=== PATIENT | male | born 1945 | race Two or more races ===

== ENCOUNTER 2016-06-19 08:30 | Emergency (ER) | payer OTHER, MEDICARE ==
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
[2016-06-19] MEDS ORDERED: INDOMETHACIN 50 MG CAPSULE PO ONE (09:02)
[2016-06-19] MEDS ORDERED: KETOROLAC TROMETHAMINE 60 MG/2 ML SDV IM ONE (09:04)
[2016-06-19 09:50] VITALS: BP 116/79
== END 2016-06-19 09:45 | disposition home or self-care (01) ==
LOC: ER 08:30
DX: M10.9 Gout, unspecified (principal)
CPT/HCPCS: 99283; 96372; J1885

== ENCOUNTER → 2016-06-26 | Outpatient (CLI) | payer MEDICARE, OTHER ==
[2016-06-26 08:16] LABS: ABSOLUTE BASOPHILS # (AUTO) 0.1 10^3/uL (0.0-0.2); ABSOLUTE EOSINOPHILS # (AUTO) 0.2 10^3/uL (0.0-0.6); ABSOLUTE LYMPHOCYTES (AUTO) 1.5 10^3/uL (0.5-4.7); ABSOLUTE MONOCYTES (AUTO) 0.9 10^3/uL (0.1-1.4); ABSOLUTE NEUT (AUTO) 2.9 10^3/uL (1.7-8.2); EOSINOPHILS % (AUTO) 3.5 % (0-6); HEMATOCRIT 44.9 % (37.9-51.0); HEMOGLOBIN 14.7 g/dL (13.5-17.0); HGB HCT DIFFERENCE -0.8; LYMPHOCYTES % (AUTO) 27.6 % (13-45); MEAN CORPUSCULAR HEMOGLOBIN 29.8 pg (27.0-33.4); MEAN CORPUSCULAR HGB CONC 32.8 g/dL (32.0-36.0); MEAN CORPUSCULAR VOLUME 91 fl (80-97); MONOCYTES % (AUTO) 15.4 % (3-13); RED BLOOD COUNT 4.93 10^6/uL (4.35-5.55); RED CELL DISTRIBUTION WIDTH 13.4 % (11.5-14.0); SEGMENTED NEUTROPHILS % (AUTO) 52.5 % (42-78); WHITE BLOOD COUNT 5.6 10^3/uL (4.0-10.5)
[2016-06-26 08:48] LABS: ALANINE AMINOTRANSFERASE 38 U/L (21-72); ALBUMIN 3.5 g/dL (3.5-5.0); ALKALINE PHOSPHATASE 150 U/L (38-126); ANION GAP 9 (5-19); ASPARTATE AMINO TRANSFERASE 32 U/L (17-59); BILIRUBIN,TOTAL 1.1 mg/dL (0.2-1.3); BLOOD UREA NITROGEN 18 mg/dL (7-20); CARBON DIOXIDE 30 mmol/L (22-30); CHLORIDE 102 mmol/L (98-107); CREATININE RESULT 0.98 mg/dL (0.52-1.25); GLUCOSE 97 mg/dL (75-110); POTASSIUM 4.8 mmol/L (3.6-5.0); SODIUM 141.1 mmol/L (137-145)
== END ==
LOC: OD 07:33
PROVIDERS: ATTEND Specialist
DX: B18.2 Chronic viral hepatitis C (principal); D50.9 Iron deficiency anemia, unspecified; R10.9 Unspecified abdominal pain
CPT/HCPCS: 36415; 80053; 80074; 82105; 85025

== ENCOUNTER 2016-06-27 05:33 | Observation (INO) | payer OTHER, MEDICARE ==
[2016-06-27 06:20] LABS: ABSOLUTE BASOPHILS # (AUTO) 0.1 10^3/uL (0.0-0.2); ABSOLUTE EOSINOPHILS # (AUTO) 0.2 10^3/uL (0.0-0.6); ABSOLUTE LYMPHOCYTES (AUTO) 1.3 10^3/uL (0.5-4.7); ABSOLUTE MONOCYTES (AUTO) 0.9 10^3/uL (0.1-1.4); ABSOLUTE NEUT (AUTO) 2.9 10^3/uL (1.7-8.2); EOSINOPHILS % (AUTO) 3.6 % (0-6); HEMATOCRIT 43.8 % (37.9-51.0); HEMOGLOBIN 14.5 g/dL (13.5-17.0); HGB HCT DIFFERENCE -0.3; LYMPHOCYTES % (AUTO) 23.7 % (13-45); MEAN CORPUSCULAR HEMOGLOBIN 30.1 pg (27.0-33.4); MEAN CORPUSCULAR HGB CONC 33.1 g/dL (32.0-36.0); MEAN CORPUSCULAR VOLUME 91 fl (80-97); MONOCYTES % (AUTO) 16.8 % (3-13); RED BLOOD COUNT 4.82 10^6/uL (4.35-5.55); RED CELL DISTRIBUTION WIDTH 13.7 % (11.5-14.0); SEGMENTED NEUTROPHILS % (AUTO) 54.9 % (42-78); WHITE BLOOD COUNT 5.3 10^3/uL (4.0-10.5)
[2016-06-27 06:39] LABS: ALANINE AMINOTRANSFERASE 30 U/L (21-72); ALBUMIN 3.6 g/dL (3.5-5.0); ALKALINE PHOSPHATASE 137 U/L (38-126); ANION GAP 9 (5-19); ASPARTATE AMINO TRANSFERASE 28 U/L (17-59); BILIRUBIN,TOTAL 1.3 mg/dL (0.2-1.3); BLOOD UREA NITROGEN 17 mg/dL (7-20); CALCIUM 8.6 mg/dL (8.4-10.2); CARBON DIOXIDE 27 mmol/L (22-30); CHLORIDE 105 mmol/L (98-107); CREATINE KINASE 104 U/L (55-170); CREATININE RESULT 0.87 mg/dL (0.52-1.25); GLUCOSE 137 mg/dL (75-110); POTASSIUM 4.3 mmol/L (3.6-5.0); SODIUM 140.9 mmol/L (137-145); TOTAL PROTEIN 6.5 g/dL (6.3-8.2)
[2016-06-27 06:47] LABS: APPEARANCE,URINE CLEAR; BILIRUBIN,URINE NEGATIVE (NEGATIVE); GLUCOSE, URINE NEGATIVE (NEGATIVE); KETONES,URINE NEGATIVE (NEGATIVE); LEUKOCYTE ESTERASE,URINE NEGATIVE (NEGATIVE); NITRITE,URINE NEGATIVE (NEGATIVE); PROTEIN,URINE NEGATIVE (NEGATIVE); URINE SPECIFIC GRAVITY 1.011; UROBILINOGEN,URINE NEGATIVE mg/dL (<2.0)
[2016-06-27 06:49] LABS: TROPONIN I < 0.012 ng/mL
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
[2016-06-27] MEDS ORDERED: FAMOTIDINE 20 MG TABLET PO SCH (10:00)
[2016-06-27] MEDS ORDERED: (PENDING PHARMACY ID) (Ranitidine Hcl [Zantac 150 Mg Tablet] 150 MG) PO SCH (10:00)
[2016-06-27] MEDS ORDERED: ASPIRIN 81 MG TABLET, CHEWABLE PO SCH (10:00)
[2016-06-27 10:22] LABS: CHOLESTEROL 137.12 mg/dL (0-200); Direct HDL 38 mg/dL (>40); TRIGLYCERIDES 125 mg/dL (<150)
[2016-06-27 10:33] LABS: DIRECT LDL 81 mg/dL (<100)
--- NOTE | 2016-06-27 13:29 | XCELERA REPORT ---
[address] [address] Transthoracic Echocardiogram Report Name: GERONIMO BROWNE Age: 71 yrs Gender: Male : 1945 Patient Status: Inpatient Patient Location: [id number]\S\314\S\A Study Date: 06/27/2016 11:16 AM Height: 71 in Weight: 199 lb BSA: 2.1 m2 Procedure: A complete two-dimensional transthoracic echocardiogram was performed (2D, M-mode, spectral and color flow Doppler). The study was technically adequate with some images being suboptimal in quality. Reason For Study: TIA, flutters Ordering Physician: TIERRA PRAKASH Performed By: Liam Mobley Interpretation Summary The left ventricular ejection fraction is within normal limits. There is borderline concentric left ventricular hypertrophy. The left ventricle is grossly normal size. LV diastolic function could not be adequately assessed. Wall motion cannot be accurately commented on, but no definite regional wall motion abnormalities noted. The right ventricle is mildly dilated. The right ventricular systolic function is normal. The right atrium is normal in size The left atrium is mildly dilated. There is a trace to mild amount of mitral regurgitation There is no mitral valve stenosis. There is a trace to mild amount of aortic regurgitation There is no aortic valve stenosis There is a trace or physiologic amount of tricuspid regurgitation Tricuspid regurgitation jet envelope not well defined to measure RV systolic pressure accurately. The aortic root is not well visualized but is probably normal size. The inferior vena cava was not well visualized There is no pericardial effusion. Consider LEATHA if clinically indicated. May consider mobile cardiac telemetry monitoring (MCT) for ruling out transient AFIB. MMode/2D Measurements \T\ Calculations RVDd: 2.7 cm LVIDd: 5.0 cm FS: 31.8 % Ao root diam: 3.9 cm IVSd: 0.92 cm LVIDs: 3.4 cm EDV(Teich): 120.3 ml LVPWd: 0.88 cm ESV(Teich): 48.6 ml Ao root area: 11.8 cm2 EF(Teich): 59.6 % LA dimension: 3.9 cm Doppler Measurements \T\ Calculations MV E max eusebia: MV P1/2t max eusebia: Ao V2 max: LV V1 max P.3 cm/sec 43.0 cm/sec 87.3 cm/sec 1.1 mmHg MV A max eusebia: MV P1/2t: 75.8 msec Ao max PG: LV V1 max: 37.3 cm/sec 3.1 mmHg 52.9 cm/sec MV E/A: 1.2 MVA(P1/2t): 2.9 cm2 MV dec slope: 166.4 cm/sec2 MV dec time: 0.26 sec PA V2 max: TR max eusebia: RAP systole: 59.2 cm/sec 207.5 cm/sec 10.0 mmHg PA max PG: TR max P.2 mmHg 1.4 mmHg RVSP(TR): 27.2 mmHg Left Ventricle The left ventricle is grossly normal size. There is borderline concentric left ventricular hypertrophy. The left ventricular ejection fraction is within normal limits. LV diastolic function could not be adequately assessed. Wall motion cannot be accurately commented on, but no definite regional wall motion abnormalities noted. Right Ventricle The right ventricle is mildly dilated. There is normal right ventricular wall thickness. The right ventricular systolic function is normal. Atria The right atrium is normal in size. The left atrium is mildly dilated. Interarterial septum not well visualized and not well dopplered. Cannot comment on ASD/PFO presence. Mitral Valve The mitral valve is grossly normal. There is no mitral valve stenosis. There is a trace to mild amount of mitral regurgitation. Aortic Valve The aortic valve is grossly normal. There is no aortic valve stenosis. There is a trace to mild amount of aortic regurgitation. Tricuspid Valve The tricuspid valve is not well visualized, but is grossly normal. There is no tricuspid stenosis. There is a trace or physiologic amount of tricuspid regurgitation. Tricuspid regurgitation jet envelope not well defined to measure RV systolic pressure accurately. Pulmonic Valve The pulmonic valve is not well visualized. Great Vessels The aortic root is not well visualized but is probably normal size. The inferior vena cava was not well visualized. Effusions There is no pericardial effusion. Incidental Findings No definite cardiac source of CVA/TIA noted on this particular trans- thoracic study. Consider LEATHA if clinically indicated. May consider mobile cardiac telemetry monitoring (MCT) for ruling out transient AFIB. : TIERRA PRAKASH > Vincenzo Little
[2016-06-27] MEDS ORDERED: HEPARIN SOD (PORCINE) 5,000 UNIT/ML 1 ML SYRINGE SUBCUT SCH (14:00)
[2016-06-27 14:50] VITALS: BP 131/70
--- NOTE | 2016-06-27 15:15 | EKG REPORT ---
SEVERITY:- NORMAL ECG - SINUS RHYTHM : Confirmed by: Dilcia Tomlin MD 27-Jun-2016 15:14:38
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
[2016-06-27] MEDS ORDERED: ATORVASTATIN CALCIUM 80 MG TABLET PO SCH (22:00)
== END 2016-06-27 15:44 | disposition home or self-care (01) ==
LOC: ER 05:33 → EH 08:13 → UNDOADMOB 08:22 → 3W 09:40
PROVIDERS: ADMIT Internal Medicine; ATTEND Internal Medicine
DX: R55 Syncope and collapse (principal); R73.03 Prediabetes; K21.9 Gastro-esophageal reflux disease without esophagitis; F43.10 Post-traumatic stress disorder, unspecified; M19.90 Unspecified osteoarthritis, unspecified site; M10.9 Gout, unspecified; E78.6 Lipoprotein deficiency
CPT/HCPCS: 93005; 99285; 36415; 82553; 82550; 85025; 80053; 81001; 84484; 83036; 80061; 93306; 70450; 70460; 93010; G0378 ×2

== ENCOUNTER → 2016-11-19 | Outpatient (CLI) | payer MEDICARE ==
[2016-11-19 08:10] LABS: ABSOLUTE BASOPHILS # (AUTO) 0.1 10^3/uL (0.0-0.2); ABSOLUTE EOSINOPHILS # (AUTO) 0.2 10^3/uL (0.0-0.6); ABSOLUTE LYMPHOCYTES (AUTO) 1.3 10^3/uL (0.5-4.7); ABSOLUTE MONOCYTES (AUTO) 0.7 10^3/uL (0.1-1.4); ABSOLUTE NEUT (AUTO) 3.4 10^3/uL (1.7-8.2); BASOPHILS % (AUTO) 1.1 % (0-2); EOSINOPHILS % (AUTO) 4.1 % (0-6); HEMATOCRIT 47.4 % (37.9-51.0); HEMOGLOBIN 15.3 g/dL (13.5-17.0); HGB HCT DIFFERENCE -1.5; LYMPHOCYTES % (AUTO) 22.3 % (13-45); MEAN CORPUSCULAR HEMOGLOBIN 29.7 pg (27.0-33.4); MEAN CORPUSCULAR HGB CONC 32.3 g/dL (32.0-36.0); MEAN CORPUSCULAR VOLUME 92 fl (80-97); RED BLOOD COUNT 5.15 10^6/uL (4.35-5.55); RED CELL DISTRIBUTION WIDTH 13.7 % (11.5-14.0); SEGMENTED NEUTROPHILS % (AUTO) 59.5 % (42-78); WHITE BLOOD COUNT 5.7 10^3/uL (4.0-10.5)
[2016-11-19 08:26] LABS: ALANINE AMINOTRANSFERASE 25 U/L (21-72); ALBUMIN 3.7 g/dL (3.5-5.0); ALKALINE PHOSPHATASE 141 U/L (38-126); ANION GAP 7 (5-19); ASPARTATE AMINO TRANSFERASE 25 U/L (17-59); BILIRUBIN,DIRECT 0.2 mg/dL (0.0-0.4); BILIRUBIN,TOTAL 1.2 mg/dL (0.2-1.3); BLOOD UREA NITROGEN 18 mg/dL (7-20); CARBON DIOXIDE 30 mmol/L (22-30); CHLORIDE 104 mmol/L (98-107); CHOLESTEROL 152.54 mg/dL (0-200); CREATININE RESULT 0.95 mg/dL (0.52-1.25); Direct HDL 50 mg/dL (>40); GLUCOSE 112 mg/dL (75-110); POTASSIUM 4.8 mmol/L (3.6-5.0); TOTAL PROTEIN 6.9 g/dL (6.3-8.2); TRIGLYCERIDES 104 mg/dL (<150)
[2016-11-19 08:37] LABS: DIRECT LDL 90 mg/dL (<100)
== END ==
LOC: OD 07:03
PROVIDERS: ATTEND Internal Medicine
DX: Z12.5 Encounter for screening for malignant neoplasm of prostate (principal); Z79.899 Other long term (current) drug therapy; R11.0 Nausea; F41.9 Anxiety disorder, unspecified; G47.00 Insomnia, unspecified; R73.9 Hyperglycemia, unspecified; M12.9 Arthropathy, unspecified; F41.8 Other specified anxiety disorders; K58.9 Irritable bowel syndrome, unspecified; R50.9 Fever, unspecified; K21.9 Gastro-esophageal reflux disease without esophagitis
CPT/HCPCS: 36415; 85025; 80053; 83036; 80061; G0103

== ENCOUNTER 2017-02-28 16:46 | Emergency (ER) | payer MEDICARE ==
--- NOTE | 2017-02-28 17:33 | ER Document Report ---
ED General - General Chief Complaint: Dizziness Stated Complaint: DIZZINESS STOMACH PAIN Time Seen by Provider: 02/28/17 17:22 Mode of Arrival: Ambulatory Information source: Patient TRAVEL OUTSIDE OF THE [place] IN LAST 30 DAYS: No - HPI Patient complains to provider of: Dizziness, abdominal pain with vomiting Onset: Yesterday Onset/Duration: Gradual Quality of pain: Cramping Severity: Mild Notes: Patient is a 72-year-old male presenting to the emergency room today complaining of dizziness, it has been going on intermittently for the past few days, he is also had some crampy abdominal pain with vomiting yesterday, he has since been able to tolerate p.o. intake, states he is just not feeling himself, patient was recently started on Cymbalta, advised to take 30 mg once a day for week and then 30 mg twice a day for a week, since starting the twice a day dosing he has not been feeling quite right, he stopped taking it 2 days ago as he suspected it was the cause of his symptoms - Related Data Allergies/Adverse Reactions: No Known Allergies Allergy (Verified 02/28/17 17:14) Past Medical History - General Information source: Patient - Social History Smoking Status: Unknown if Ever Smoked Family History: Reviewed & Not Pertinent Patient has suicidal ideation: No Patient has homicidal ideation: No - Past Medical History Cardiac Medical History: Denies: Hx Congestive Heart Failure, Hx Heart Attack, Hx Hypertension Pulmonary Medical History: Denies: Hx Asthma, Hx Bronchitis, Hx COPD, Hx Pneumonia, Hx Tuberculosis Neurological Medical History: Denies: Hx Seizures Renal/ Medical History: Denies: Hx Benign Prostatic Hyperplasia, Hx End Stage Renal Disease, Hx Kidney Stones, Hx Peritoneal Dialysis GI Medical History: Reports: Hx Gastroesophageal Reflux Disease, Hx Hiatal Hernia. Denies: Hx Cirrhosis Musculoskeltal Medical History: Reports Hx Arthritis, Reports Hx Gout, Denies Hx Multiple Sclerosis Psychiatric Medical History: Reports: Hx Anxiety, Hx Depression - stopped taking meds, Hx Post Traumatic Stress Disorder Denies: Hx Bipolar Disorder, Hx Schizophrenia Traumatic Medical History: Reports: Hx Fractures - Ankle Past Surgical History: Reports: Hx Abdominal Surgery - Remove shrapnel from multiple areas, Hx Genitourinary Surgery - Bladder surgery due to a step on a line mind, Hx Orthopedic Surgery - leg x3, arm and shoulder ankle - Immunizations Immunizations up to date: Yes Hx Diphtheria, Pertussis, Tetanus Vaccination: Yes Review of Systems - Review of Systems Constitutional: No symptoms reported EENT: No symptoms reported Cardiovascular: Dizziness Respiratory: No symptoms reported Gastrointestinal: See HPI Genitourinary: No symptoms reported Male Genitourinary: No symptoms reported Musculoskeletal: No symptoms reported Skin: No symptoms reported Hematologic/Lymphatic: No symptoms reported Neurological/Psychological: No symptoms reported -: Yes All other systems reviewed and negative Physical Exam - Vital signs Vitals: Temp Pulse Resp BP Pulse Ox 97.8 F 61 16 125/71 98 02/28/17 17:09 02/28/17 17:09 02/28/17 17:09 02/28/17 17:09 02/28/17 17:09 Interpretation: Normal - General General appearance: Appears well, Alert - HEENT Head: Normocephalic, Atraumatic Eyes: Normal Pupils: PERRL - Respiratory Respiratory status: No respiratory distress Chest status: Nontender Breath sounds: Normal Chest palpation: Normal - Cardiovascular Rhythm: Regular Heart sounds: Normal auscultation Murmur: No - Abdominal Inspection: Normal Distension: No distension Bowel sounds: Normal Tenderness: Nontender Organomegaly: No organomegaly - Back Back: Normal, Nontender - Extremities General upper extremity: Normal inspection, Nontender, Normal color, Normal ROM , Normal temperature General lower extremity: Normal inspection, Nontender, Normal color, Normal ROM , Normal temperature, Normal weight bearing. No: Alfredo's sign - Neurological Neuro grossly intact: Yes Cognition: Normal Orientation: AAOx4 Della Coma Scale Eye Opening: Spontaneous [place] Coma Scale Verbal: Oriented [place] Coma Scale Motor: Obeys Commands Della Coma Scale Total: 15 Speech: Normal Motor strength normal: LUE, RUE, LLE, RLE Sensory: Normal - Psychological Associated symptoms: Normal affect, Normal mood - Skin Skin Temperature: Warm Skin Moisture: Dry Skin Color: Normal Course - Re-evaluation Re-evalutation: 02/28/17 18:51 Laboratory findings were discussed with patient at bedside which are unremarkable, symptoms likely related to the recent addition of Cymbalta to his regimen, he was advised that he should not abruptly stop this medication but should taper off of it if he wishes to do so under the care of the physician that prescribed to him, patient acknowledges understanding and agreement with this plan - Vital Signs Vital signs: Temp Pulse Resp BP Pulse Ox 97.8 F 61 16 125/71 98 02/28/17 17:09 02/28/17 17:09 02/28/17 17:09 02/28/17 17:09 02/28/17 17:09 - Laboratory Result Diagrams: 02/28/17 17:40 02/28/17 17:40 Laboratory results interpreted by me: 02/28/17 02/28/17 02/28/17 17:40 17:40 17:40 Plt Count 127 L Monocytes % 14.1 H Glucose 123 H Alkaline Phosphatase 146 H Lipase 13.9 L Urine Blood SMALL H Discharge - Discharge Clinical Impression: Dizziness Condition: Stable Disposition: HOME, SELF-CARE Instructions: Dizziness (OM) Additional Instructions: Follow up with your primary care provider in one to 2 days. Return to the emergency room immediately if symptoms worsen or any additional concerns. Symptoms are likely related to recent intake of Cymbalta, this is not a medication that you can stop abruptly or it will cause you additional side effects. Follow-up with your primary care provider to discuss tapering off of this medication appropriately.
[2017-02-28 18:20] LABS: APPEARANCE,URINE CLEAR; BILIRUBIN,URINE NEGATIVE (NEGATIVE); GLUCOSE, URINE NEGATIVE (NEGATIVE); KETONES,URINE NEGATIVE (NEGATIVE); LEUKOCYTE ESTERASE,URINE NEGATIVE (NEGATIVE); NITRITE,URINE NEGATIVE (NEGATIVE); PROTEIN,URINE NEGATIVE (NEGATIVE); URINE SPECIFIC GRAVITY 1.018; UROBILINOGEN,URINE NEGATIVE mg/dL (<2.0)
[2017-02-28 18:23] LABS: ABSOLUTE EOSINOPHILS # (AUTO) 0.2 10^3/uL (0.0-0.6); ABSOLUTE LYMPHOCYTES (AUTO) 1.1 10^3/uL (0.5-4.7); ABSOLUTE MONOCYTES (AUTO) 0.8 10^3/uL (0.1-1.4); ABSOLUTE NEUT (AUTO) 3.5 10^3/uL (1.7-8.2); BASOPHILS % (AUTO) 0.5 % (0-2); HEMATOCRIT 46.1 % (37.9-51.0); HEMOGLOBIN 16.1 g/dL (13.5-17.0); HGB HCT DIFFERENCE 2.2; MEAN CORPUSCULAR HEMOGLOBIN 31.5 pg (27.0-33.4); MEAN CORPUSCULAR HGB CONC 34.8 g/dL (32.0-36.0); MEAN CORPUSCULAR VOLUME 90 fl (80-97); MONOCYTES % (AUTO) 14.1 % (3-13); RED BLOOD COUNT 5.11 10^6/uL (4.35-5.55); RED CELL DISTRIBUTION WIDTH 13.5 % (11.5-14.0); SEGMENTED NEUTROPHILS % (AUTO) 62.4 % (42-78); WHITE BLOOD COUNT 5.7 10^3/uL (4.0-10.5)
[2017-02-28 18:29] LABS: RBC,URINE 0-1 /HPF; WBC,URINE RARE /HPF
[2017-02-28 18:41] LABS: ALANINE AMINOTRANSFERASE 43 U/L (21-72); ALBUMIN 4.2 g/dL (3.5-5.0); ALKALINE PHOSPHATASE 146 U/L (38-126); ANION GAP 9 (5-19); ASPARTATE AMINO TRANSFERASE 37 U/L (17-59); BILIRUBIN,DIRECT 0.4 mg/dL (0.0-0.4); BILIRUBIN,TOTAL 1.3 mg/dL (0.2-1.3); BLOOD UREA NITROGEN 19 mg/dL (7-20); CALCIUM 9.6 mg/dL (8.4-10.2); CARBON DIOXIDE 30 mmol/L (22-30); CHLORIDE 101 mmol/L (98-107); CREATININE RESULT 0.98 mg/dL (0.52-1.25); GLUCOSE 123 mg/dL (75-110); LIPASE 13.9 U/L (23-300); POTASSIUM 4.1 mmol/L (3.6-5.0); SODIUM 140.4 mmol/L (137-145); TOTAL PROTEIN 7.4 g/dL (6.3-8.2)
[2017-02-28 19:01] VITALS: BP 120/72
== END 2017-02-28 19:02 | disposition home or self-care (01) ==
LOC: ER 16:46
DX: R42 Dizziness and giddiness (principal); R10.9 Unspecified abdominal pain; R11.10 Vomiting, unspecified
CPT/HCPCS: 36415; 80053; 81001; 83690; 85025; 99284

== ENCOUNTER 2017-07-19 20:44 | Emergency (ER) | payer MEDICARE ==
--- NOTE | 2017-07-19 21:13 | ER Document Report ---
ED Cardiac - General Chief Complaint: Chest Pain > 30 Stated Complaint: CHEST PAIBN Time Seen by Provider: 07/19/17 21:13 Mode of Arrival: Ambulatory Information source: Patient TRAVEL OUTSIDE OF THE [place] IN LAST 30 DAYS: No - HPI Notes: 72-year-old gentleman with no significant past medical history who presented today for evaluation of chest pain. He reported that his chest pain is localized to the left side of the chest, mild radiation to the left shoulder, achy, episodic, nonexertional, severity of symptoms is 2 out of 10. The onset of symptoms was more than 4 hours ago. Patient reported that he went for a walk this weekend and did not have any pains. Patient denies any family history of heart disease. - Related Data Allergies/Adverse Reactions: No Known Allergies Allergy (Verified 02/28/17 17:14) Past Medical History - Social History Smoking Status: Never Smoker Chew tobacco use (# tins/day): No Frequency of alcohol use: Rare Drug Abuse: None Family History: Reviewed & Not Pertinent Patient has suicidal ideation: No Patient has homicidal ideation: No - Past Medical History Cardiac Medical History: Denies: Hx Congestive Heart Failure, Hx Heart Attack, Hx Hypertension Pulmonary Medical History: Denies: Hx Asthma, Hx Bronchitis, Hx COPD, Hx Pneumonia, Hx Tuberculosis Neurological Medical History: Denies: Hx Seizures Renal/ Medical History: Denies: Hx Benign Prostatic Hyperplasia, Hx End Stage Renal Disease, Hx Kidney Stones, Hx Peritoneal Dialysis GI Medical History: Reports: Hx Gastroesophageal Reflux Disease, Hx Hiatal Hernia. Denies: Hx Cirrhosis Musculoskeltal Medical History: Reports Hx Arthritis, Reports Hx Gout, Denies Hx Multiple Sclerosis Psychiatric Medical History: Reports: Hx Anxiety, Hx Depression - stopped taking meds, Hx Post Traumatic Stress Disorder Denies: Hx Bipolar Disorder, Hx Schizophrenia Traumatic Medical History: Reports: Hx Fractures - Ankle Past Surgical History: Reports: Hx Abdominal Surgery - Remove shrapnel from multiple areas, Hx Genitourinary Surgery - Bladder surgery due to a step on a land mind, Hx Orthopedic Surgery - leg x3, arm and shoulder ankle - Immunizations Immunizations up to date: Yes Hx Diphtheria, Pertussis, Tetanus Vaccination: Yes Review of Systems - Review of Systems Notes: REVIEW OF SYSTEMS: CONSTITUTIONAL: -fevers, -chills EENT: -eye pain, -difficulty swallowing, -nasal congestion CARDIOVASCULAR: +chest pain, -syncope. RESPIRATORY: -cough, -SOB GASTROINTESTINAL: -abdominal pain, -nausea, -vomiting, -diarrhea GENITOURINARY: -dysuria, -hematuria MUSCULOSKELETAL: -back pain, -neck pain SKIN: -rash or skin lesions. HEMATOLOGIC: -easy bruising or bleeding. LYMPHATIC: -swollen, enlarged glands. NEUROLOGICAL: -altered mental status or loss of consciousness, -headache, - neurologic symptoms PSYCHIATRIC: -anxiety, -depression. ALL OTHER SYSTEMS REVIEWED AND NEGATIVE. Physical Exam - Vital signs Vitals: Temp Pulse Resp BP Pulse Ox 97.6 F 61 20 120/73 97 07/19/17 21:00 07/19/17 21:00 07/19/17 21:00 07/19/17 21:00 07/19/17 21:00 - Notes Notes: Reviewed vital signs and nursing note as charted by RN. CONSTITUTIONAL: Alert and oriented and responds appropriately to questions, appears to be in good shape HEAD: Normocephalic; atraumatic EYES: PERRL; Conjunctivae clear, sclerae non-icteric ENT: normal nose NECK: Supple CARD: Regular rate and rhythm; no murmurs, no clicks, no rubs, no gallops; symmetric distal pulses RESP: Normal chest excursion without splinting or tachypnea; breath sounds clear and equal bilaterally ABD/GI: Normal bowel sounds; non-distended; soft, BACK: The back appears normal and is non-tender to palpation EXT: Normal ROM in all joints; non-tender to palpation; no cyanosis, no effusions, no edema SKIN: Normal color for age and race; warm; dry; good turgor; capillary refill < 2 seconds; no acute lesions noted NEURO: Cranial nerves 3-12 intact. Motor strength 5/5 bilaterally. Sensation intact to touch bilaterally. No pronator drift. Finger to nose intact bilaterally PSYCH: The patient's mood and manner are appropriate. Grooming and personal hygiene are appropriate. Course - Re-evaluation Re-evalutation: 72-year-old with no medical history presented today for evaluation of chest pain Differential diagnoses includes ACS, pneumonia, pleural effusion, muscular skeletal pain, pericarditis, myocarditis No concern for PE given the patient has no hypoxia or tachycardia We will obtain basic lab work including CBC, BMP Chest x-ray, EKG, cardiac biomarkers One set of troponin is enough to rule out ACS given that patient had pain for more than 4 hours now We will give patient full dose aspirin Continuous cardiac monitoring and pulse oximetry Reassess patient Reassessment 10:30 PM Patient has normal cardiac workup, undetectable troponin, EKG with no ischemic changes Chest x-ray with no acute cardiopulmonary process Heart score is 2, patient is appropriate for outpatient cardiac workup, 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 HEART SCORE Used for ACS Risk Stratification Low Risk= total score of 0-3, <2% risk of adverse cardiac event at 6 weeks High Risk = total score of 4 or greater Risk Factors include: Hypercholesterolemia, Hypertension, Diabetes Mellitus, Cigarette smoking, Positive Family History, Obesity History: 0 ECG 0 Age 2 Risk Factors 0 Troponin 0 Score: 2 - Vital Signs Vital signs: Temp Pulse Resp BP Pulse Ox 97.6 F 61 16 120/73 97 07/19/17 21:00 07/19/17 21:00 07/19/17 21:11 07/19/17 21:11 07/19/17 21:14 - Laboratory Result Diagrams: 07/19/17 21:30 07/19/17 21:30 Laboratory results interpreted by me: 07/19/17 07/19/17 21:30 21:30 Plt Count 139 L BUN 27 H Glucose 136 H Alkaline Phosphatase 163 H - EKG Interpretation by Me Additional EKG results interpreted by me: 07/19/17 22:39 EKG interpretation Right 59 Normal sinus rhythm, normal [place] interval, narrow QRS, QTC within normal limits Patient has no ST elevation or T-wave inversions in any of the leads no significant changes compared to his prior EKG
[2017-07-19] MEDS ORDERED: ASPIRIN 81 MG TABLET, CHEWABLE PO ONE (21:14)
[2017-07-19 21:38] LABS: ABSOLUTE EOSINOPHILS # (AUTO) 0.1 10^3/uL (0.0-0.6); ABSOLUTE LYMPHOCYTES (AUTO) 1.8 10^3/uL (0.5-4.7); ABSOLUTE MONOCYTES (AUTO) 0.9 10^3/uL (0.1-1.4); ABSOLUTE NEUT (AUTO) 5.4 10^3/uL (1.7-8.2); BASOPHILS % (AUTO) 0.4 % (0-2); EOSINOPHILS % (AUTO) 1.7 % (0-6); HEMOGLOBIN 14.9 g/dL (13.5-17.0); LYMPHOCYTES % (AUTO) 21.2 % (13-45); MEAN CORPUSCULAR HEMOGLOBIN 30.7 pg (27.0-33.4); MEAN CORPUSCULAR HGB CONC 33.9 g/dL (32.0-36.0); MEAN CORPUSCULAR VOLUME 90 fl (80-97); MONOCYTES % (AUTO) 10.7 % (3-13); PLATELET COUNT 139 10^3/uL (150-450); RED BLOOD COUNT 4.87 10^6/uL (4.35-5.55); RED CELL DISTRIBUTION WIDTH 13.7 % (11.5-14.0); TOTAL CELLS COUNTED % (AUTO) 100 %; WHITE BLOOD COUNT 8.3 10^3/uL (4.0-10.5)
--- NOTE | 2017-07-19 21:52 | RADIOLOGY REPORT (SQ) ---
EXAM DESCRIPTION: CHEST SINGLE VIEW COMPLETED DATE/TIME: 07/19/2017 9:37 pm REASON FOR STUDY: chest pain COMPARISON: 05/14/2016 EXAM PARAMETERS: NUMBER OF VIEWS: One view. TECHNIQUE: Single frontal radiographic view of the chest acquired. RADIATION DOSE: NA LIMITATIONS: None. FINDINGS: LUNGS AND PLEURA: No acute opacities, masses or pneumothorax. No pleural effusion. MEDIASTINUM AND HILAR STRUCTURES: No masses. Contour normal. HEART AND VASCULAR STRUCTURES: Heart normal in size. Normal vasculature. BONES: No acute findings. HARDWARE: None in the chest. OTHER: No other significant finding. IMPRESSION: NO ACUTE RADIOGRAPHIC FINDING IN THE CHEST. TECHNICAL DOCUMENTATION: JOB ID: [id number] [place]-72 2010 [employer]- All Rights Reserved
[2017-07-19 21:57] LABS: ALANINE AMINOTRANSFERASE 43 U/L (21-72); ALBUMIN 3.8 g/dL (3.5-5.0); ALKALINE PHOSPHATASE 163 U/L (38-126); ANION GAP 11 (5-19); ASPARTATE AMINO TRANSFERASE 30 U/L (17-59); BILIRUBIN,DIRECT 0.1 mg/dL (0.0-0.4); BILIRUBIN,TOTAL 0.7 mg/dL (0.2-1.3); BLOOD UREA NITROGEN 27 mg/dL (7-20); CALCIUM 8.8 mg/dL (8.4-10.2); CARBON DIOXIDE 28 mmol/L (22-30); CHLORIDE 102 mmol/L (98-107); CREATINE KINASE 99 U/L (55-170); GLUCOSE 136 mg/dL (75-110); POTASSIUM 4.4 mmol/L (3.6-5.0); SODIUM 140.8 mmol/L (137-145); TOTAL PROTEIN 6.3 g/dL (6.3-8.2)
[2017-07-19 22:10] LABS: CREATINE KINASE MB 1.23 ng/mL (<4.55)
[2017-07-19 22:18] LABS: TROPONIN I < 0.012 ng/mL
[2017-07-19 22:57] VITALS: BP 107/69
--- NOTE | 2017-07-20 07:45 | EKG REPORT ---
SEVERITY:- NORMAL ECG - SINUS RHYTHM : Confirmed by: Wesly Crawford MD 20-Jul-2017 07:44:26
== END 2017-07-19 22:58 | disposition home or self-care (01) ==
LOC: ER 20:44
DX: R07.9 Chest pain, unspecified (principal); M25.512 Pain in left shoulder
CPT/HCPCS: 93005; 99285; 36415; 82553; 82550; 85025; 80053; 84484; 71045; 93010; A9270

== ENCOUNTER 2017-12-03 10:10 | Emergency (ER) | payer MEDICARE ==
[2017-12-03 10:16] VITALS: BP 125/75
[2017-12-03] MEDS ORDERED: RABIES VACCINE (PCEC)/PF 2.5 UNIT/1 ML KIT IM ONE (10:39)
[2017-12-03] MEDS ORDERED: RABIES IMMUNE GLOBULIN INJ/PF 300 UNIT/2 ML SDV IM ONE (10:39)
[2017-12-03] MEDS ORDERED: DIPH/PERTUSS(ACELL)/TETANUS VAC/PF 0.5 ML SYR (>=10YO) IM ONE (10:39)
[2017-12-03] MEDS ORDERED: AMOXICILLIN TR/POT CLAVULANATE 500-125 MG TAB PO ONE (10:39)
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
== END 2017-12-03 11:28 | disposition home or self-care (01) ==
LOC: ER 10:10
DX: S61.256A Open bite of right little finger without damage to nail, initial encounter (principal); W55.01XA Bitten by cat, initial encounter; Y93.K9 Activity, other involving animal care; Y92.488 Other paved roadways as the place of occurrence of the external cause; Z23 Encounter for immunization; Z20.3 Contact with and (suspected) exposure to rabies
CPT/HCPCS: 99283; 96372; 90471 ×2; 90715; 90675; 90376; A9270

== ENCOUNTER 2018-02-18 05:28 | Day surgery (SDC) | payer OTHER, MEDICARE ==
[2018-02-07 12:34] LABS: HEMATOCRIT 45.1 % (37.9-51.0); HEMOGLOBIN 15.3 g/dL (13.5-17.0); MEAN CORPUSCULAR HEMOGLOBIN 30.4 pg (27.0-33.4); MEAN CORPUSCULAR HGB CONC 33.8 g/dL (32.0-36.0); MEAN CORPUSCULAR VOLUME 90 fl (80-97); PLATELET COUNT 135 10^3/uL (150-450); RED BLOOD COUNT 5.02 10^6/uL (4.35-5.55); WHITE BLOOD COUNT 6.5 10^3/uL (4.0-10.5)
--- NOTE | 2018-02-07 22:57 | EKG REPORT ---
SEVERITY:- NORMAL ECG - SINUS RHYTHM : Confirmed by: Vincenzo Little 07-Feb-2018 22:56:50
[~2018-02-18 05:28] MED LIST: ACETAMINOPHEN 325 MG TABLET PO PRN; CEFAZOLIN 2 GM/D5W RTU 2 GM/50 ML RTUPB IV PRN; LACTATED RINGERS 1000 ML IV PRN; LIDOCAINE 0.5% INJ-PF (5 MG/ML) 50 ML SDV SUBCUT PRN
[2018-02-18] MEDS ORDERED: CEFAZOLIN 2 GM/D5W RTU 2 GM/50 ML RTUPB IV ONE (05:37)
[2018-02-18] MEDS ORDERED: BUPIVACAINE HCL 0.5 % INJ/PF 30 ML SDV ONE (06:39)
[2018-02-18] MEDS ORDERED: ACETAMINOPHEN 1,000 MG/100 ML RTUPB IV ONE (06:41)
[2018-02-18] MEDS ORDERED: DEXAMETHASONE SOD PHOSPHATE INJ 4 MG/1 ML VIAL ONE (06:41)
[2018-02-18] MEDS ORDERED: MIDAZOLAM 2 MG/2 ML INJ ONE (06:41)
[2018-02-18] MEDS ORDERED: PROPOFOL INJ 200 MG/20 ML VIAL IV ONE (06:41)
[2018-02-18] MEDS ORDERED: ONDANSETRON HCL INJ/PF 4 MG/2 ML SDV ONE (06:41)
[2018-02-18] MEDS ORDERED: FENTANYL CITRATE INJ/PF 100 MCG/2 ML AMPUL ONE ×2 (06:41→10:36)
[2018-02-18] MEDS ORDERED: EPHEDRINE SULFATE INJ 50 MG/1 ML AMPULE ONE (06:42)
[2018-02-18] MEDS ORDERED: MEPERIDINE HCL/PF INJ 25 MG/1 ML DISP.SYRIN IV PRN (08:21)
[2018-02-18] MEDS ORDERED: PROMETHAZINE HCL INJ 25 MG/1 ML VIAL IV PRN ×2 (08:21)
[2018-02-18] MEDS ORDERED: DIPHENHYDRAMINE HCL 50 MG/ML VIAL IV PRN (08:21)
[2018-02-18] MEDS ORDERED: FENTANYL CITRATE INJ/PF 100 MCG/2 ML AMPUL IV PRN ×3 (08:21)
[2018-02-18] MEDS ORDERED: OXYCODONE-ACETAMINOPHEN 5-325 MG TABLET PO PRN ×2 (08:21)
[2018-02-18] MEDS ORDERED: ONDANSETRON HCL INJ/PF 4 MG/2 ML SDV IV PRN (08:21)
[2018-02-18] MEDS ORDERED: MORPHINE SULFATE 10 MG/ML INJ IV PRN (08:21)
[2018-02-18] MEDS ORDERED: KETOROLAC TROMETHAMINE 60 MG/2 ML SDV ONE (09:51)
[2018-02-18] MEDS ORDERED: PHENYLEPHRINE HCL INJ/PF 10 MG/1 ML SDV ONE (09:51)
[2018-02-18] MEDS ORDERED: NEOSTIGMINE METHYLSULFATE 10 MG/10 ML VIAL ONE (09:51)
[2018-02-18] MEDS ORDERED: VECURONIUM BROMIDE INJ 10 MG VIAL IV ONE (09:51)
[2018-02-18] MEDS ORDERED: SUCCINYLCHOLINE CHLORIDE INJ 200 MG/10 ML VIAL ONE (09:51)
[2018-02-18] MEDS ORDERED: GLYCOPYRROLATE 1 MG/5 ML SYRINGE ONE (09:51)
[2018-02-18] MEDS ORDERED: HYDROCODONE/ACETAMINOPHEN 10-325 MG TABLET PO PRN (10:20)
--- NOTE | 2018-02-18 10:21 | Discharge Summary ---
Discharge Summary (SDC) - Discharge Final Diagnosis: Bilateral inguinal hernia. Date of Surgery: 02/18/18 Discharge Date: 02/18/18 Condition: Stable Treatment or Instructions: Discharge home. Diet as tolerated. Activity: No lifting greater than 10 pounds 4 weeks. Follow-up with me in 7-10 days. Ramsey 10/325 mg p.o. every 6 hours as needed for pain. Okay to shower on Wednesday. No tub baths or swimming 2 weeks. Referrals: USHA LAZAR MD [Primary Care Provider] - Discharge Diet: As Tolerated Respiratory Treatments at Home: Deep Breathing/Coughing, Incentive Spirometer Discharge Activity: No Lifting Over 10 Pounds Home Care Assistance: None Needed Report the Following to Your Physician Immediately: Shortness of Breath, Nausea , Vomiting, Increase in Pain, Fever over 101 Degrees, Unusual Bleeding, Redness , Swelling, Warmth, Increased Soreness
--- NOTE | 2018-02-18 10:31 | Operative Report ---
Nonrecallable Operative Report DATE OF SURGERY: 02/18/18 PREOPERATIVE DIAGNOSIS: Bilateral inguinal hernia. POSTOPERATIVE DIAGNOSIS: 1. Left indirect inguinal hernia. 2. Right pantaloon inguinal hernia. OPERATION: Bilateral robot-assisted laparoscopic inguinal hernia repair with mesh. SURGEON: JOSSIE TAMAYO ANESTHESIA: GA TISSUE REMOVED OR ALTERED: None COMPLICATIONS: None apparent ESTIMATED BLOOD LOSS: Minimal PROCEDURE: Drains/implants: Right and left large 3 DMax inguinal hernia mesh. Procedure in detail: After informed consent was obtained, the patient was brought to the operating room and laid in the supine position. The area of the abdomen was prepped and draped in a normal sterile fashion. A 15 blade scalpel was used to create a supraumbilical incision. This was deepened through the use of blunt dissection. The linea alba fascia was incised sharply, the abdomen was entered sharply. The balloon trocar was inserted, and pneumoperitoneum was achieved. Under direct laparoscopic visualization, right and left lateral 8 mm robotic trochars were placed in the abdominal wall. The robot was then brought over the patient and docked appropriately. Attention was then turned to the right groin. There was a direct as well as indirect inguinal hernia defect present. An incision was created in the peritoneum 2-3 cm superior to the defects. A preperitoneal dissection was undertaken. This was performed using sharp dissection, blunt dissection, and electrocautery. The hernia sacs were then reduced into the abdomen and inverted. This was done with great care, so as not to injure the cord structures. The direct defect was somewhat large, and was felt to benefit from closure. 2 -0 nonabsorbable V lock suture was used to close the defect in simple running fashion. Next, a right sided large 3 DMax inguinal hernia mesh was placed into the abdominal cavity and situated over the defect. The mesh was sutured medially and superiorly using 2-0 Vicryl suture. Once the mesh was found to lie in good place, the peritoneum was closed using 2- 0 absorbable V lock suture in simple running fashion. Attention was then turned to the left groin. A large indirect hernia defect was identified. A preperitoneal dissection was undertaken. Incision was created in the peritoneum, 2-3 cm superior to the defect. The preperitoneal dissection was performed using sharp dissection, blunt dissection, and electrocautery. The hernia sac was freed from the cord structures, taking great care not to injure the cord structures. Once the sac was freed, it was inverted. A large left-sided 3 DMax inguinal hernia mesh was placed in the preperitoneal position. It was sutured to the abdominal wall medially and superiorly using 2-0 Vicryl suture. Once this was completed the mesh was found to lie in good place. The peritoneum was then closed using 2-0 absorbable V lock suture in simple running fashion. The groins were inspected, and the repairs appeared to be in good order. The robot was then undocked. The supraumbilical fascia was closed using 0 Vicryl suture in [id number] fashion. The overlying skin was closed using 4-0 Vicryl Rapide suture in subcuticular fashion. Dressings were placed, and the procedure was concluded. All sponge, instrument, and needle counts were correct 2.
[2018-02-18 12:20] VITALS: BP 113/75
== END 2018-02-18 12:10 | disposition home or self-care (01) ==
LOC: OROUT 05:28
PROVIDERS: ATTEND Surgery
DX: K40.20 Bilateral inguinal hernia, without obstruction or gangrene, not specified as recurrent (principal); K82.8 Other specified diseases of gallbladder; K76.0 Fatty (change of) liver, not elsewhere classified; M19.90 Unspecified osteoarthritis, unspecified site; K21.9 Gastro-esophageal reflux disease without esophagitis; Z87.891 Personal history of nicotine dependence; Z79.899 Other long term (current) drug therapy
CPT/HCPCS: 49650; S2900; 36415; 830; 85027; 93005; 93010; C1758; C1781; J0131; J0330; J0690; J1100; J1885; J2250; J2370; J2405; J2704; J3010; J3490

== ENCOUNTER 2018-08-13 23:21 | Emergency (ER) | payer OTHER, MEDICARE ==
[2018-08-14] MEDS ORDERED: ASPIRIN 81 MG TABLET, CHEWABLE PO ONE (00:47)
[2018-08-14 01:05] LABS: ALANINE AMINOTRANSFERASE 24 U/L (21-72); ALBUMIN 3.9 g/dL (3.5-5.0); ALKALINE PHOSPHATASE 166 U/L (38-126); ANION GAP 7 (5-19); ASPARTATE AMINO TRANSFERASE 28 U/L (17-59); BILIRUBIN,DIRECT 0.3 mg/dL (0.0-0.4); BILIRUBIN,TOTAL 0.9 mg/dL (0.2-1.3); BLOOD UREA NITROGEN 23 mg/dL (7-20); CALCIUM 8.9 mg/dL (8.4-10.2); CARBON DIOXIDE 28 mmol/L (22-30); CHLORIDE 105 mmol/L (98-107); GLUCOSE 133 mg/dL (75-110); POTASSIUM 4.2 mmol/L (3.6-5.0); SODIUM 139.6 mmol/L (137-145); TOTAL PROTEIN 6.7 g/dL (6.3-8.2)
[2018-08-14 01:06] LABS: ABSOLUTE EOSINOPHILS # (AUTO) 0.1 10^3/uL (0.0-0.6); ABSOLUTE LYMPHOCYTES (AUTO) 1.2 10^3/uL (0.5-4.7); ABSOLUTE MONOCYTES (AUTO) 0.8 10^3/uL (0.1-1.4); ABSOLUTE NEUT (AUTO) 4.7 10^3/uL (1.7-8.2); BASOPHILS % (AUTO) 0.4 % (0-2); HEMATOCRIT 41.8 % (37.9-51.0); HEMOGLOBIN 14.3 g/dL (13.5-17.0); LYMPHOCYTES % (AUTO) 17.3 % (13-45); MEAN CORPUSCULAR HEMOGLOBIN 31.3 pg (27.0-33.4); MEAN CORPUSCULAR HGB CONC 34.3 g/dL (32.0-36.0); MEAN CORPUSCULAR VOLUME 91 fl (80-97); MONOCYTES % (AUTO) 12.3 % (3-13); PLATELET COUNT 139 10^3/uL (150-450); RED BLOOD COUNT 4.58 10^6/uL (4.35-5.55); RED CELL DISTRIBUTION WIDTH 13.6 % (11.5-14.0); TOTAL CELLS COUNTED % (AUTO) 100 %; WHITE BLOOD COUNT 6.8 10^3/uL (4.0-10.5)
--- NOTE | 2018-08-14 01:13 | RADIOLOGY REPORT (SQ) ---
CLINICAL HISTORY: chest pain COMPARISON: May 14, 2018. TECHNIQUE: XR CHEST 1 VIEW 08/14/2018 12:48 AM CDT FINDINGS: Cardiac silhouette is normal in size. There is minimal peripheral left lower lobe airspace disease. There is no pleural effusion. There is no pneumothorax. There are no acute osseous findings. IMPRESSION: Minimal left lower lobe pneumonia.
--- NOTE | 2018-08-14 01:36 | ER Document Report ---
ED Cardiac - General Chief Complaint: Chest Pain Stated Complaint: CHEST PAIN Time Seen by Provider: 08/14/18 00:41 Primary Care Provider: USHA LAZAR MD [NO LOCAL MD] - Follow up as needed Notes: Patient is a 73-year-old male who comes emergency department for chief complaint of chest pain. He states that the pain was sharp, mid to lower chest, occurred prior to arrival at rest. He denies nausea vomiting, difficulty breathing, fever/chills. He denies injury. He was at home with his . He states he pantoja s a past medical history of PTSD and injury with secondary surgeries but he denies any daily medications, denies history of [place], states he had a negative stress test several years ago. He denies smoking, alcohol use, or occasional drugs. is at bedside. TRAVEL OUTSIDE OF THE [place] IN LAST 30 DAYS: No - Related Data Allergies/Adverse Reactions: No Known Allergies Allergy (Verified 02/18/18 06:19) Past Medical History - General Information source: Patient - Social History Smoking Status: Never Smoker Frequency of alcohol use: None Drug Abuse: None Lives with: Family Family History: Reviewed & Not Pertinent Patient has suicidal ideation: No Patient has homicidal ideation: No - Past Medical History Cardiac Medical History: Reports: Hx Hypercholesterolemia, Hx Hypertension Denies: Hx Congestive Heart Failure, Hx Coronary Artery Disease, Hx Heart Attack Pulmonary Medical History: Denies: Hx Asthma, Hx Bronchitis, Hx COPD, Hx Pneumonia, Hx Tuberculosis Neurological Medical History: Denies: Hx Cerebrovascular Accident, Hx Seizures Renal/ Medical History: Denies: Hx Benign Prostatic Hyperplasia, Hx End Stage Renal Disease, Hx Kidney Stones, Hx Peritoneal Dialysis GI Medical History: Reports: Hx Gastroesophageal Reflux Disease, Hx Hiatal Hernia. Denies: Hx Cirrhosis Musculoskeletal Medical History: Reports Hx Arthritis, Reports Hx Gout, Denies Hx Multiple Sclerosis Psychiatric Medical History: Reports: Hx Anxiety, Hx Depression - stopped taking meds, Hx Post Traumatic Stress Disorder Denies: Hx Bipolar Disorder, Hx Schizophrenia Traumatic Medical History: Reports: Hx Fractures - Ankle Past Surgical History: Reports: Hx Abdominal Surgery - Remove shrapnel from multiple areas, Hx Genitourinary Surgery - Bladder surgery due to a step on a land mind, Hx Orthopedic Surgery - leg x3, arm and shoulder ankle - Immunizations Immunizations up to date: Yes Hx Diphtheria, Pertussis, Tetanus Vaccination: Yes - NOT UP-TO-DATE Review of Systems - Review of Systems Constitutional: No symptoms reported EENT: No symptoms reported Cardiovascular: See HPI Respiratory: No symptoms reported Gastrointestinal: No symptoms reported Genitourinary: No symptoms reported Male Genitourinary: No symptoms reported Musculoskeletal: No symptoms reported Skin: No symptoms reported Hematologic/Lymphatic: No symptoms reported Neurological/Psychological: No symptoms reported Physical Exam - Vital signs Vitals: Pulse Ox 100 08/14/18 00:48 - Notes Notes: GENERAL: Alert, interacts well. No acute distress. HEAD: Normocephalic, atraumatic. EYES: Pupils equal, round, and reactive to light. Extraocular movements intact. ENT: Oral mucosa moist, tongue midline. Oropharynx unremarkable. Airway patent. Nares patent, no nasal septal hematoma, TM's intact. NECK: Full range of motion. Supple. Trachea midline. LUNGS: Clear to auscultation bilaterally, no wheezes, rales, or rhonchi. No respiratory distress. HEART: Regular rate and rhythm. No murmur ABDOMEN: Soft, non-tender. Non-distended. Bowel sounds present in all 4 quadrants. GENITOURINARY: Deferred EXTREMITIES: Moves all 4 extremities spontaneously. No edema, normal radial and dorsalis pedis pulses bilaterally. No cyanosis. BACK: no cervical, thoracic, lumbar midline tenderness. No saddle anesthesia, normal distal neurovascular exam. NEUROLOGICAL: Alert and oriented x3. Normal speech. [cranial nerves II through XII grossly intact]. PSYCH: Normal affect, normal mood. SKIN: Warm, dry, normal turgor. No rashes or lesions noted. Course - Re-evaluation Re-evalutation: Patient with a sharp pain over his chest which only lasted for a few seconds. He is well-appearing on my exam. EKG with no T wave inversions or ST segment changes in consecutive leads. Chest x-ray shows possible left lower lobe pneumonia. Troponin negative, cycled and again negative. Work-up unremarkable otherwise. On reevaluation patient remains well-appearing. I discussed work-up with patient. Patient is actually very anxious to go home. Patient states he has had some congestion and cough for some time, along with his left-sided chest pain and possible left-sided pneumonia after discussion of work-up and options decision was made to not have patient admitted here but instead to treat him outpatient with doxycycline for possible atypical developing pneumonia. Discussed follow-up and return precautions in detail with patient and significant other. They state satisfaction agreement. Stable time of discharge. - Vital Signs Vital signs: Temp Pulse Resp BP Pulse Ox 100 08/14/18 00:48 - Laboratory Result Diagrams: 08/14/18 00:11 08/14/18 00:11 Laboratory results interpreted by me: 08/14/18 08/14/18 00:11 00:11 Plt Count 139 L BUN 23 H Glucose 133 H Alkaline Phosphatase 166 H Discharge - Discharge Clinical Impression: Chest pain, atypical Condition: Stable Disposition: HOME, SELF-CARE Additional Instructions: Your work-up today is reassuring but does show what appears to be a left-sided pneumonia. Based on your symptoms I suspect this is an atypical pneumonia that is early in development. Take doxycycline as prescribed, follow-up closely with your primary care provide r for additional management. Return if you worsen including severe pain, difficulty breathing, spiking fever/chills, or any other concerning or worsening symptoms. Prescriptions: Doxycycline Hyclate 100 mg PO BID #14 capsule Referrals: USHA LAZAR MD [NO LOCAL MD] - Follow up as needed
[2018-08-14] MEDS ORDERED: DOXYCYCLINE HYCLATE 100 MG TABLET PO ONE (02:58)
--- NOTE | 2018-08-14 08:27 | EKG REPORT ---
SEVERITY:- NORMAL ECG - SINUS RHYTHM : Confirmed by: Wesly Crawford MD 14-Aug-2018 08:27:07
== END 2018-08-14 04:20 | disposition home or self-care (01) ==
LOC: ER 23:21
DX: R07.89 Other chest pain (principal); R05 Cough; I10 Essential (primary) hypertension
CPT/HCPCS: 36415; 71045; 80053; 84484; 85025; 93005; 93010; 99285

== ENCOUNTER 2019-09-09 09:01 | Emergency (ER) | payer MEDICARE, OTHER ==
--- NOTE | 2019-09-09 10:40 | ER Document Report ---
ED General Pain - General Chief Complaint: Back Pain Stated Complaint: LOWER BACK PAIN Time Seen by Provider: 09/09/19 10:17 Primary Care Provider: [facility] [Primary Care Provider] - Follow up as needed TRAVEL OUTSIDE OF THE [place] IN LAST 30 DAYS: No - HPI Notes: Chief complaint: Low back pain This is a 74-year-old male followed by the [facility] with a history of PTSD, gout, osteoarthritis and chronic pain syndrome presenting now with some worsening lower back pain with some radiation into the posterior aspect of the thigh bilaterally which is intermittent and getting gradually worse over the last 2 weeks. He denies any new injury. He is seen by pain management and takes some oxycodone on a as needed basis only says he averages taking this 2 or 3 times a week. Patient denies any bowel or bladder symptoms. He denies any known history of kidney or liver disease. He denies any history of diabetes. - Related Data Allergies/Adverse Reactions: No Known Allergies Allergy (Verified 09/09/19 09:29) Past Medical History - General Information source: Patient - Social History Smoking Status: Former Smoker Frequency of alcohol use: Rare Family History: Reviewed & Not Pertinent Patient has suicidal ideation: No Patient has homicidal ideation: No - Past Medical History Cardiac Medical History: Reports: Hx Hypercholesterolemia, Hx Hypertension Denies: Hx Congestive Heart Failure, Hx Coronary Artery Disease, Hx Heart Attack Pulmonary Medical History: Denies: Hx Asthma, Hx Bronchitis, Hx COPD, Hx Pneumonia, Hx Tuberculosis Neurological Medical History: Denies: Hx Cerebrovascular Accident, Hx Seizures, Hx Parkinson's Disease Renal/ Medical History: Denies: Hx Benign Prostatic Hyperplasia, Hx End Stage Renal Disease, Hx Kidney Stones, Hx Peritoneal Dialysis GI Medical History: Reports: Hx Gastroesophageal Reflux Disease, Hx Hiatal Hernia. Denies: Hx Cirrhosis Musculoskeletal Medical History: Reports Hx Arthritis, Reports Hx Gout, Denies Hx Multiple Sclerosis Psychiatric Medical History: Reports: Hx Anxiety, Hx Depression - stopped taking meds, Hx Post Traumatic Stress Disorder Denies: Hx Bipolar Disorder, Hx Schizophrenia Traumatic Medical History: Reports: Hx Fractures - Ankle Past Surgical History: Reports: Hx Abdominal Surgery - Remove shrapnel from multiple areas, Hx Genitourinary Surgery - Bladder surgery due to a step on a land mind, Hx Orthopedic Surgery - leg x3, arm and shoulder ankle - Immunizations Immunizations up to date: Yes Hx Diphtheria, Pertussis, Tetanus Vaccination: Yes - NOT UP-TO-DATE Review of Systems - Review of Systems Notes: Constitutional: Negative for fever. HENT: Negative for sore throat. Eyes: Negative for visual changes. Cardiovascular: Negative for chest pain. Respiratory: Negative for shortness of breath. Gastrointestinal: Negative for abdominal pain, vomiting or diarrhea. Genitourinary: Negative for dysuria. Musculoskeletal: As per HPI. Skin: Negative for rash. Neurological: Negative for headaches, weakness or numbness. 10 point ROS negative except as marked above and in HPI. Physical Exam - Vital signs Vitals: Temp Pulse Resp BP Pulse Ox 98.5 F 67 18 101/58 L 97 09/09/19 10:32 09/09/19 10:32 09/09/19 10:32 09/09/19 10:32 09/09/19 10:32 - Notes Notes: GENERAL: Well-developed well-nourished appearing in no acute distress. SKIN: Good turgor no rashes. HEAD: Normocephalic atraumatic. EYES: PERRLA. EOMI. Conjunctivae and sclerae clear. EARS: CANALS AND TMS CLEAR. Patient has a hearing aid on the right. NOSE: CLEAR. MOUTH: Moist mucosa. Good dentition. No stridor or edema. No drooling. NECK: Supple. No masses or thyromegaly. No adenopathy. Carotids 2+ without bruits. No JVD. BACK: Symmetrical without tenderness. CHEST: Respirations unlabored. Breath sounds clear and symmetrical. HEART: Regular rhythm. No murmur gallop or rub. ABDOMEN: Soft nontender without masses, organomegaly or rebound. Bowel sounds normally active. No bruits. GENITALIA: Deferred. EXTREMITIES: No edema. No calf tenderness. Cap refill less than 1.5 seconds. Dorsalis pedis and posterior tibial pulses 3+ and symmetrical. NEUROLOGICAL: GCS 15. Alert and oriented x3. Normal gait. Fluent speech. Cranial nerves II through XII intact. Sensorimotor and cerebellar normal. Normal tone. PSYCHIATRIC: Appropriate affect. Course - Re-evaluation Re-evalutation: 09/09/19 10:39 This appears to be primarily acute exacerbation of chronic low back pain. Primarily because the patient's age I am going to get plain films of the lumbar spine prior to further disposition. 09/09/19 11:16 Moderate degenerative changes of lumbar spine on x-ray with spondylolisthesis L5-S1. I would give this man some IM Decadron and Toradol. I will place him on some Celebrex at home and have him follow-up with his doctor [facility]. - Vital Signs Vital signs: Temp Pulse Resp BP Pulse Ox 98.5 F 67 18 101/58 L 97 09/09/19 10:32 09/09/19 10:32 09/09/19 10:32 09/09/19 10:32 09/09/19 10:32 - Diagnostic Test Radiology reviewed: Reports reviewed - Radiologist reports spondylolisthesis L5- S1 and moderate degenerative disease of lumbar spine. Discharge - Discharge Clinical Impression: Spondylolisthesis lumbar spine Condition: Stable Disposition: HOME, SELF-CARE Instructions: Low Back Pain ([facility]) Additional Instructions: Take prescribed medication as directed. Follow-up with your primary care physician at the [facility] within the next 7 to 10 days. You may need to discuss physical therapy with them. Return here as needed for new or worsening symptoms: Pain that is worsening or unimproved Uncontrolled vomiting High fever or shaking chills Overall worsening Prescriptions: Celecoxib [Celebrex 200 mg Capsule] 200 mg PO DAILY #30 capsule Referrals: [facility] [Primary Care Provider] - Follow up as needed
--- NOTE | 2019-09-09 11:15 | RADIOLOGY REPORT (SQ) ---
EXAM DESCRIPTION: L SPINE WHOLE IMAGES COMPLETED DATE/TIME: 09/09/2019 10:54 am REASON FOR STUDY: sciatica COMPARISON: None. NUMBER OF VIEWS: Five views including obliques. TECHNIQUE: AP, lateral, oblique, and sacral radiographic images acquired of the lumbar spine. LIMITATIONS: None. FINDINGS: MINERALIZATION: Normal. SEGMENTATION: Normal. No transitional anatomy. ALIGNMENT: Grade 1 spondylolisthesis L5-S1 with bilateral spondylolysis VERTEBRAE: Maintained height. No fracture or worrisome bone lesion. DISCS: Marked degenerative disc disease L5-S1. POSTERIOR ELEMENTS: Pars defects L5 HARDWARE: None in the spine. PARASPINAL SOFT TISSUES: Normal. PELVIS: Intact as visualized. No fractures or worrisome bone lesions. SI joints intact. OTHER: No other significant finding. IMPRESSION: Grade 1 spondylolisthesis L5 on S1 with bilateral spondylolysis. Degenerative disc dise ase L5-S1. TECHNICAL DOCUMENTATION: JOB ID: [id number] 2010 [employer]- All Rights Reserved Reading location - IP/workstation name: [email or web address]
[2019-09-09] MEDS ORDERED: DEXAMETHASONE SOD PHOS INJ 10 MG/1 ML VIAL IM ONE (11:17)
[2019-09-09] MEDS ORDERED: KETOROLAC TROMETHAMINE 60 MG/2 ML SDV IM ONE (11:18)
[2019-09-09 12:37] VITALS: BP 107/72
== END 2019-09-09 12:38 | disposition home or self-care (01) ==
LOC: ER 09:01
DX: M43.16 Spondylolisthesis, lumbar region (principal); M51.37 Other intervertebral disc degeneration, lumbosacral region; M54.5 Low back pain; G89.4 Chronic pain syndrome; I10 Essential (primary) hypertension
CPT/HCPCS: 99283; 96372; 72110; J1885; J1100

== ENCOUNTER 2020-05-06 17:29 | Emergency (ER) | payer OTHER, MEDICARE ==
[2020-05-06 18:35] VITALS: BP 132/61
--- NOTE | 2020-05-06 19:39 | ER Document Report ---
ED Medical Screen (RME) - General Chief Complaint: Chest Pain Stated Complaint: CHEST PAIN Time Seen by Provider: 05/06/20 19:33 Primary Care Provider: YAS,JITENDRA [Primary Care Provider] - Follow up as needed Mode of Arrival: Wheelchair Information source: Patient Notes: HPI; 75-year-old male presents to the emergency room complaining of left-sided chest pain that started earlier today. States is intermittent. Nothing makes it worse nothing makes it better. Describes it as a dull aching. Patient states he took oxycodone which he takes for his chronic back pain without relief. He denies any nausea, vomiting, no diaphoresis. No COVID-19 exposure. PE: Alert and oriented x3. Lungs: Clear to auscultation without rales, rhonchi, wheezes. Heart: Regular rate rhythm without murmurs, rubs, gallops. I have greeted and performed a rapid initial assessment of this patient. A comprehensive ED assessment and evaluation of the patient, analysis of test results and completion of the medical decision making process will be conducted by additional ED providers. I have specifically instructed the patient or family members with the patient to immediately return to any nursing staff should anything change in the patient's condition or with their chief complaint. TRAVEL OUTSIDE OF THE [place] IN LAST 30 DAYS: No - Related Data Allergies/Adverse Reactions: No Known Allergies Allergy (Verified 09/09/19 09:29) Past Medical History - Past Medical History Cardiac Medical History: Reports: Hx Hypercholesterolemia, Hx Hypertension Denies: Hx Congestive Heart Failure, Hx Coronary Artery Disease, Hx Heart Attack Pulmonary Medical History: Denies: Hx Asthma, Hx Bronchitis, Hx COPD, Hx Pneumonia, Hx Tuberculosis Neurological Medical History: Denies: Hx Cerebrovascular Accident, Hx Seizures, Hx Parkinson's Disease Renal/ Medical History: Denies: Hx Benign Prostatic Hyperplasia, Hx End Stage Renal Disease, Hx Kidney Stones, Hx Peritoneal Dialysis GI Medical History: Reports: Hx Gastroesophageal Reflux Disease, Hx Hiatal Hernia. Denies: Hx Cirrhosis Musculoskeltal Medical History: Reports Hx Arthritis, Reports Hx Gout, Denies Hx Multiple Sclerosis Psychiatric Medical History: Reports: Hx Anxiety, Hx Depression - stopped taking meds, Hx Post Traumatic Stress Disorder Denies: Hx Bipolar Disorder, Hx Schizophrenia Traumatic Medical History: Reports: Hx Fractures - Ankle Past Surgical History: Reports: Hx Abdominal Surgery - Remove shrapnel from multiple areas, Hx Genitourinary Surgery - Bladder surgery due to a step on a land mind, Hx Orthopedic Surgery - leg x3, arm and shoulder ankle - Immunizations Immunizations up to date: Yes Hx Diphtheria, Pertussis, Tetanus Vaccination: Yes - NOT UP-TO-DATE Physical Exam - Vital signs Vitals: Temp Pulse Resp BP Pulse Ox 98.0 F 67 18 132/61 H 99 05/06/20 17:58 05/06/20 17:58 05/06/20 17:58 05/06/20 17:58 05/06/20 17:58 Course - Vital Signs Vital signs: Temp Pulse Resp BP Pulse Ox 98.0 F 67 18 132/61 H 99 05/06/20 17:58 05/06/20 17:58 05/06/20 17:58 05/06/20 17:58 05/06/20 17:58 Doctor's Discharge - Discharge Referrals: [facility] [Primary Care Provider] - Follow up as needed
[2020-05-06 20:03] LABS: ABSOLUTE EOSINOPHILS # (AUTO) 0.2 10^3/uL (0.0-0.6); ABSOLUTE LYMPHOCYTES (AUTO) 1.6 10^3/uL (0.5-4.7); ABSOLUTE MONOCYTES (AUTO) 0.9 10^3/uL (0.1-1.4); ABSOLUTE NEUT (AUTO) 3.5 10^3/uL (1.7-8.2); BASOPHILS % (AUTO) 0.6 % (0-2); EOSINOPHILS % (AUTO) 3.9 % (0-6); HEMATOCRIT 41.1 % (37.9-51.0); HEMOGLOBIN 13.9 g/dL (13.5-17.0); LYMPHOCYTES % (AUTO) 25.7 % (13-45); MEAN CORPUSCULAR HGB CONC 33.9 g/dL (32.0-36.0); MEAN CORPUSCULAR VOLUME 91 fl (80-97); MONOCYTES % (AUTO) 14.5 % (3-13); PLATELET COUNT 131 10^3/uL (150-450); RED CELL DISTRIBUTION WIDTH 13.8 % (11.5-14.0); SEGMENTED NEUTROPHILS % (AUTO) 55.3 % (42-78); TOTAL CELLS COUNTED % (AUTO) 100 %; WHITE BLOOD COUNT 6.3 10^3/uL (4.0-10.5)
[2020-05-06 20:20] LABS: ALBUMIN 3.7 g/dL (3.5-5.0); ALKALINE PHOSPHATASE 149 U/L (38-126); ASPARTATE AMINO TRANSFERASE 28 U/L (17-59); BILIRUBIN,TOTAL 0.6 mg/dL (0.2-1.3); BLOOD UREA NITROGEN 16 mg/dL (7-20); CALCIUM 8.9 mg/dL (8.4-10.2); GLUCOSE 106 mg/dL (75-110); POTASSIUM 4.4 mmol/L (3.6-5.0); TOTAL PROTEIN 6.7 g/dL (6.3-8.2)
[2020-05-06 20:25] LABS: CARBON DIOXIDE 32 mmol/L (22-30); CHLORIDE 101 mmol/L (98-107)
[2020-05-06 20:27] LABS: ANION GAP 4 (5-19)
--- NOTE | 2020-05-06 20:30 | RADIOLOGY REPORT (SQ) ---
CHEST X-RAY 2 view on 05/06/2020 at 7:58 PM CLINICAL INDICATION: Chest pain COMPARISON: 08/14/2018 FINDINGS: The lungs are clear. Mild vascular calcification is noted in the aorta. Cardiac, hilar and mediastinal contours are within normal limits. Pulmonary vascularity is within normal limits. No bony abnormality is noted. IMPRESSION: No active disease.
--- NOTE | 2020-05-07 17:46 | EKG REPORT ---
SEVERITY:- NORMAL ECG - SINUS RHYTHM : Confirmed by: Vincenzo Little 07-May-2020 17:46:25
== END 2020-05-06 21:08 | disposition left against medical advice (07) ==
LOC: ER 17:29
DX: R07.9 Chest pain, unspecified (principal); G89.29 Other chronic pain; M54.9 Dorsalgia, unspecified; E78.00 Pure hypercholesterolemia, unspecified; I10 Essential (primary) hypertension
CPT/HCPCS: 36415; 71046; 80053; 84484; 85025; 93005; 93010; 99281